=== PATIENT | male | born 1975 | race Caucasian/White ===

== ENCOUNTER 2019-09-24 01:00 | Emergency (ER) | payer SELFPAY ==
[~2019-09-24 01:00] MED LIST: CYCL-1 PO; FLO0.4C PO
== END 2019-09-24 01:06 | disposition left against medical advice (07) ==
LOC: ER 01:00
DX: R07.89 Other chest pain (principal); Z53.21 Procedure and treatment not carried out due to patient leaving prior to being seen by health care provider

== ENCOUNTER 2020-03-20 09:34 | Emergency (ER) | payer MEDICAID ==
[~2020-03-20] VITALS: Ht 185.4 cm; Wt 72.7 kg
[2020-03-20] MEDS ORDERED: normal saline 1000ML IV soln IVB ONE (09:45)
--- NOTE | 2020-03-20 09:51 | NUR ---
POISON CONTROL CALLED FOR PT TAKING AN OVERDOSE OF ZYPREXA 10MG. NOTIFIED THAT PT HAD FILLED THE RX ON 03/18, HAD TAKEN APPROX 2 TAKEN 2 TABLETS YESTERDAY AND THAT EMS RETRIEVED THE RX WITH ONLY 4-10MG TABLES OUT OF 15 IN THE BOTTLE. RECOMMENDATION: PT MAY EXPERIENCE SEDATION; MONITOR MENTAL STATUS, AIRWAY PT MY HAVE SEIZURES POSSIBLE QT PROLONGATION; EKG NOW AND REPEAT IN 4 HRS ASA, TYLENOL LEVELS, CBC, CMP OBSERVE FOR 6 HR ARNOL SALCEDO NOTIFIED
[2020-03-20 09:58] LABS: BASOPHILS # (AUTO) 0.1 X10'3 (0-0.2); EOSINOPHILS # (AUTO) 0.5 X10'3 (0-0.9); EOSINOPHILS % (AUTO) 6.7 % (0-6); HEMATOCRIT 42.9 % (42.0-52.0); HEMOGLOBIN 14.3 g/dl (14.0-17.9); LYMPHOCYTES # (AUTO) 2.4 X10'3 (1.1-4.8); LYMPHOCYTES % (AUTO) 29.3 % (21-51); MEAN CORPUSCULAR HEMOGLOBIN 30.8 PG (27.0-31.0); MEAN CORPUSCULAR HGB CONC 33.4 g/dL (33.0-36.5); MEAN CORPUSCULAR VOLUME 92.2 FL (78-98); MEAN PLATELET VOLUME 7.7 FL (7.4-10.4); MONOCYTES # (AUTO) 0.8 X10'3 (0-0.9); MONOCYTES % (AUTO) 9.5 % (2-12); NEUTROPHILS # (AUTO) 4.3 X10'3 (1.8-7.7); NEUTROPHILS % (AUTO) 53.5 % (42-75); PLATELET COUNT 270 X10'3 (140-440); RED BLOOD COUNT 4.66 X10'6 (4.70-6.10); RED CELL DISTRIBUTION WIDTH 13.6 % (11.5-14.5)
[2020-03-20 10:10] LABS: ALANINE AMINOTRANSFERASE 32 U/L (12-78); ALBUMIN 3.4 G/DL (3.4-5.0); ALKALINE PHOSPHATASE 101 IU/L (46-116); ANION GAP 8 (8-16); ASPARTATE AMINO TRANSFERASE 20 U/L (10-37); BILIRUBIN,TOTAL 0.3 MG/DL (0.1-1.0); BLOOD UREA NITROGEN 27 MG/DL (7-18); CHLORIDE 108 MMOL/L (99-107); GLUCOSE 132 MG/DL (70-104); POTASSIUM 3.8 MMOL/L (3.5-5.1); SODIUM 142 MMOL/L (135-145); TOTAL CARBON DIOXIDE 26.3 MMOL/L (24-32); TOTAL PROTEIN 6.7 G/DL (6.4-8.2); eGFR 81 ML/MIN
[2020-03-20 10:18] LABS: ETHANOL < 0.010 GM/DL (0.0-0.010); TROPONIN I < 0.04 NG/ML (0.0-0.05)
[2020-03-20 10:20] LABS: ACETAMINOPHEN < 2.0 UG/ML (10-30)
[2020-03-20 11:53] LABS: CLARITY,URINE SLIGHTLY CLOUDY (Clear); COLOR,URINE YELLOW (Yellow); GLUCOSE, URINE NEGATIVE (Neg); KETONES,URINE NEGATIVE (Neg); LEUKOCYTE ESTERASE ,URINE TRACE (Neg); NITRITES, URINE NEGATIVE (Neg); OCCULT BLOOD,URINE NEGATIVE (Neg); PROTEIN,URINE NEGATIVE (Neg); UROBILINOGEN,URINE 0.2 E.U/dL (0.2-1.0)
[2020-03-20 11:54] LABS: UA COLLECTION TYPE VOIDED
[2020-03-20 11:58] LABS: SQUAMOUS EPITHELIAL CELL,UR FEW /LPF (FEW)
[2020-03-20 11:59] LABS: BACTERIA,URINE FEW /HPF (Neg); RBC,URINE 0-2 /HPF (0-2)
[2020-03-20 12:01] LABS: URINE AMPHETAMINE SCREEN POSITIVE (Neg); URINE BARBITUATE SCREEN NEGATIVE (Neg); URINE BENZODIAZEPINES SCREEN POSITIVE (Neg); URINE CANNABINOID SCREEN NEGATIVE (Neg); URINE COCAINE SCREEN NEGATIVE (Neg); URINE METHADONE SCREEN NEGATIVE (Neg); URINE OPIATE SCREEN NEGATIVE (Neg); URINE PHENCYCLIDINE SCREEN NEGATIVE (Neg)
[2020-03-20] MEDS ORDERED: OLAN10TA19 PO (12:20)
--- NOTE | 2020-03-20 15:30 | NUR ---
RN received pt. laying in bed on left side sleeping. Pt. is in no apparent distress.
--- NOTE | 2020-03-20 16:22 | NUR ---
[id number] CELINE AGUIRRE [phone] BROTHER RACHEL AGUIRRE [phone] BROTHER AND [id number] HAVE A RESTRAINING ORDER AGAINST PT, BUT ARE WILLING TO HELP THE PT. CELINE SAID TO CALL HER FOR ANY QUESTIONS.
--- NOTE | 2020-03-20 16:55 | NUR ---
Poison control called to get final assessment of pt. and sign off on case.
--- NOTE | 2020-03-20 17:00 | NUR ---
Pt. awake an laying supine in bed. 1:1 and physical assessment completed. Pt. is stoic, irritable, and gives minimal responses during interview. Pt. admits to purposely taking Zyprexa overdose. When asked if he wanted to , pt. stated, "maybe". When pressed further pt. replied, "Life is hard sometimes". Pt. reports he was started on Zyprexa yesterday, when asked why he was started on the medication pt. did not respond. When asked about voices pt. stated, "I'm hearing your voice now". Pt. denies current SI/HI, A/V hallucinations. Pt. requesting snacks and given juice and jello. Pt. in no apparent distress.
[2020-03-20 18:09] VITALS: BP 123/81
--- NOTE | 2020-03-20 19:30 | NUR ---
The patient has been cooperative on the unit. He ate all of his dinner. He is currently being seen by [facility]
[2020-03-21] MEDS ORDERED: olanzapine 10mg tablet PO SCH (21:00)
== END 2020-03-20 21:35 ==
LOC: ER 09:34
DX: T43.592A Poisoning by other antipsychotics and neuroleptics, intentional self-harm, initial encounter (principal); R41.82 Altered mental status, unspecified; R00.0 Tachycardia, unspecified; Z79.899 Other long term (current) drug therapy; Y92.89 Other specified places as the place of occurrence of the external cause
CPT/HCPCS: 36415; 71045; 80053; 80305; 80320; 80329; 81001; 84443; 84484; 85025; 87088; 93005; 96360; 96361; 99285; J7030